=== PATIENT | female | born 1995 | race American Indian/Alaskan Native ===

== ENCOUNTER 2017-01-31 02:08 | Emergency (ER) | payer OTHER ==
[2017-01-31 02:20] VITALS: RESP 16; TEMP 97.9
[2017-01-31] MEDS ORDERED: Tetanus/Diphtheria Toxoids 0.5 ml Syringe IM ONE (02:38)
[2017-01-31] MEDS ORDERED: Lidocaine 2% Inj (20ml) ONE (02:49)
--- NOTE | 2017-01-31 03:08 | C.PDOC ---
History Of Present Illness 21 y/o female c/o laceration to the left index finger after a metal door hit her finger [employer]. Patient denies fever, chills, or any other complaints. Tetanus is not up to date. Time Seen by Provider: 01/31/17 02:16 Chief Complaint (Nursing): Abnormal Skin Integrity History Per: Patient History/Exam Limitations: no limitations Onset/Duration Of Symptoms: Hrs Current Symptoms Are (Timing): Still Present Location Of Injury: Left: Hand Quality Of Symptoms: Painful Severity: Mild Additional History Per: Patient Past Medical History Reviewed: Historical Data, Nursing Documentation, Vital Signs Vital Signs: Last Vital Signs Temp 97.9 F 01/31/17 02:18 Pulse 78 01/31/17 03:27 Resp 16 01/31/17 03:27 BP 131/78 01/31/17 03:27 Pulse Ox 97 01/31/17 05:52 Family History: States: Unknown Family Hx - Social History Hx Alcohol Use: Yes Hx Substance Use: No Review Of Systems Constitutional: Negative for: Fever, Chills Skin: Positive for: Lesions (left index finger, laceration) Physical Exam - Physical Exam Appears: Non-toxic, No Acute Distress Skin: Warm, Dry, Other (1cm superficial laceration to the distal aspect of the left 2nd finger, palmar aspect. No bony tendermess. Normal ROM) Head: Atraumatic, Normacephalic Eye(s): bilateral: Normal Inspection Extremity: Normal ROM (left hand), Capillary Refill (<2secs) Pulses: Left Radial: Normal, Right Radial: Normal Neurological/Psych: Oriented x3, Normal Motor, Normal Sensation ED Course And Treatment O2 Sat by Pulse Oximetry: 97 (RA) Pulse Ox Interpretation: Normal Progress Note: Plans: Laceration repair, tetanus. Immediately prior to procedure a "time out" was called to verify the correct patient, procedure and site. Procedure: Wound was anesthetized, cleansed thoroughly, NS irrigation, and explored: No foreign body or deep structure involvement was detected. Entire laceration closed with 4 sutures. Patients condition remained stable throughout Emergency Department evaluation with no evidence of neurologic instability. There is always a risk of undetected foreign body nerve or tendon injury, therefore the importance of close follow-up care was stressed. Laceration - Laceration Repair Left 2nd digit Wound Length (In cm): 1 Description Of Wound: Linear Wound Cleansed With: Betadine Anesthesia: Lidocaine 1% Wound Examination: Irrigated With Saline, No FB With Wound Exploration, No Tendon Injury With Wound Exploration Wound Closure: Suture (4) Suture Technique And Material Used: Nylon (4.0) Wound Complexity: Simple (Patient tolerated the procedure well with no complications.) Disposition Counseled Patient/Family Regarding: Diagnosis, Need For Followup - Disposition Referrals: Your PMD, primary care doctor [Other] Disposition: HOME/ ROUTINE Disposition Time: 03:14 Condition: STABLE Additional Instructions: Please keep wound clean and dry foe 2 days Then follow instructions for wound care Suture removal in 8-10 days Return to ER if worse Instructions: Finger Laceration (ED) Forms: [facility] (Maldivian), Work Excuse - Clinical Impression Clinical Impression: Laceration of finger - Scribe Statement The provider has reviewed the documentation as recorded by the Scribeloisa chow All medical record entries made by the Katieibeloisa were at my direction and personally dictated by me. I have reviewed the chart and agree that the record accurately reflects my personal performance of the history, physical exam, medical decision making, and the department course for this patient. I have also personally directed, reviewed, and agree with the discharge instructions and disposition.
[2017-01-31] MEDS ORDERED: Bacitracin 500 Units/gm Oint Foilpak UD ONE (03:15)
[2017-01-31 03:27] VITALS: BP 131/78; PULSE 78
[2017-01-31 05:49] VITALS: O2SAT 97
== END 2017-01-31 03:27 | disposition home or self-care (01) ==
LOC: C.ER 02:08 → EDBD 02:08 → C.ER 03:27
DX: S61.211A Laceration without foreign body of left index finger without damage to nail, initial encounter (principal); W22.8XXA Striking against or struck by other objects, initial encounter